=== PATIENT | female | born 1990 | race Caucasian/White ===

== ENCOUNTER 2017-08-22 11:06 | Outpatient (CLI) | payer MEDICAID ==
[2017-08-23 13:02] LABS: HEPATITIS C ANTIBODY NON-REACTIVE (NON-REACTIVE)
[2017-08-23 13:17] LABS: HIV AG/AB 4TH GEN NON-REACTIVE (NON-REACTIVE)
[2017-08-24 11:40] LABS: HSV 1 IGG TYPE SPECIFIC AB <0.90 index; HSV 2 IGG TYPE SPECIFIC AB <0.90 index
== END 2017-08-22 11:07 | disposition home or self-care (01) ==
LOC: LAB.S 11:06
PROVIDERS: ATTEND Nurse Practitioner Family
DX: Z72.51 High risk heterosexual behavior (principal)
CPT/HCPCS: 36415; 81599; 86592; 86695; 86696; 86803; 87389; 87491; 87591

== ENCOUNTER 2019-04-28 08:14 | Outpatient (CLI) | payer MEDICAID ==
--- NOTE | 2019-04-28 21:52 | Ultrasound Report ---
Reason: FAM HX OF POLYCYSTIC KIDNEY DISEASE Procedure Date: 04/28/2019 Accession Number: [id number] / [id number] Procedure: US - Retroperitoneal CPT Code: Final Report FULL RESULT: EXAM: RENAL ULTRASOUND EXAM DATE: 04/28/2019 08:21 AM. CLINICAL HISTORY: FAM HX OF POLYCYSTIC KIDNEY DISEASE. COMPARISON: None. TECHNIQUE: Real-time scanning was performed with static images obtained. FINDINGS: Right Kidney: 11.6 x 3.7 x 5.6 cm. No shadowing stones, contour-deforming masses, or hydronephrosis. Left Kidney: 12.2 x 4.2 x 5.4 cm. No shadowing stones, contour-deforming masses, or hydronephrosis. 1 cm simple interpolar cyst. Bladder: Bilateral jets seen. The prevoid bladder volume was 120 cc. The postvoid bladder volume was 42 cc. Small amount of internal debris, nonspecific. IMPRESSION: 1 cm left interpolar renal cyst. Small amount of bladder debris, nonspecific. Correlate to exclude hematuria or proteinuria. RADIA
== END 2019-04-28 08:15 | disposition home or self-care (01) ==
LOC: DI 08:14
PROVIDERS: ATTEND Urology
DX: Q61.01 Congenital single renal cyst (principal)
CPT/HCPCS: 76770

== ENCOUNTER 2019-12-13 15:34 | Outpatient (CLI) | payer MEDICAID ==
--- NOTE | 2019-12-13 17:16 | XRAY Report ---
PROCEDURE: Lumbar Spine 2 View INDICATIONS: LUMBAR BACK PAIN,SCIATICA TECHNIQUE: 3 views of the lumbar spine were acquired. COMPARISON: None. FINDINGS: Bones: 5 [id number] vertebrae are present. There is normal bony alignment. No vertebral body compression fractures. No suspicious bony lesions. Moderate L4-L5 degenerative disease. Mild L1-L2, L2-L3, L3-L4 and L5-S1 degenerative disc disease. Soft tissues: Overlying bowel gas pattern is normal. No suspicious soft tissue calcifications. Intr auterine device positioned over the central right pelvis. IMPRESSION: 1. Multilevel degenerative disease. 2. No fracture. No acute osseous lesion. If there is continued clinical concern for pathology, then M RI should be considered for further evaluation. Reviewed by: Sana Cohen MD, PhD on 12/13/2019 5:15 PM PDT Approved by: Sana Cohen MD, PhD on 12/13/2019 5:15 PM PDT Station ID: [id number]
== END 2019-12-13 15:35 | disposition home or self-care (01) ==
LOC: DI.S 15:34
PROVIDERS: ATTEND Physician Assistant
DX: M51.36 Other intervertebral disc degeneration, lumbar region (principal)
CPT/HCPCS: 72100

== ENCOUNTER 2020-01-11 12:35 | Outpatient (CLI) | payer MEDICAID ==
--- NOTE | 2020-01-11 15:16 | MRI Report ---
PROCEDURE: Lumbar Spine W/O INDICATIONS: CHRONIC LUMBAR BACK PAIN TECHNIQUE: Noncontrast sagittal T1 spin echo and T2 fast echo, sagittal STIR, axial T1 and T2 fast spin echo thr ough the lumbar spine. In cases with scoliosis, additional coronal T2 fast spin echo may be performe d. COMPARISON: Correlation is made with lumbar plain films, 12/13/2019 FINDINGS: Image quality: Diagnostic, with note made of motion artifact. Alignment and Curvature: There is straightening of the normal lumbar lordosis. No significant AP al ignment abnormality can be seen. Bone Marrow: Marrow is of normal overall signal. No acute vertebral body compression fractures. Spinal Cord: Conus medullaris terminates at the L1 level. Visualized cord demonstrates normal signa l and size. Paraspinous Soft Tissues: No paravertebral masses. T12-L1: Normal in appearance. L1-L2: Normal in appearance. L2-L3: Moderate loss of disc height and signal are seen. Moderate disc bulge is seen, with a centr al disc extrusion, with inferior migration of the disc material. There is an associated annular fissu re seen. Mild to moderate facet hypertrophy is seen. Reactive marrow endplate changes are seen, whic h are hyperintense on T1-weighted and T2-weighted imaging, without significant increased STIR signal. These imaging findings are most consistent with fatty metaplasia (Modic type 2 change). There is m oderate right-sided and mild to moderate left-sided neuroforaminal narrowing seen. Moderate to severe central canal narrowing is seen, as on series 801 image 26. L3-L4: Mild loss of disc height and disc signal are seen. 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 Mild to moderate disc bulge is seen, which is eccentric to the left. There is a mild central disc protrusion. Moderate facet hypertrophy is seen. There is mild to moderate right-sided and mode rate left-sided neuroforaminal narrowing seen. Mild to moderate central canal narrowing is seen. L4-L5: Moderate loss of disc height and signal are seen. Reactive marrow endplate changes are seen , which demonstrate mixed signal and are attributed to a combination of edema and fatty metaplasia (M odic type I and Modic type II changes). Moderate disc bulge is seen, with a prominent central disc e xtrusion. Associated severe central canal narrowing is seen, as on series 801 image 12. Moderate fac et hypertrophy is seen. Moderate bilateral neuroforaminal narrowing is seen, left worse than right. L5-S1: Moderate loss of disc height and signal are seen. Moderate disc bulge is seen, which is ec centric to the left. There is a central disc protrusion. Mild to moderate facet hypertrophy is seen a t this level. There is mild right-sided and moderate left-sided neuroforaminal narrowing seen. Moder ate central canal narrowing is seen. 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 At L4-L5, there is severe central canal narrowing seen. Reviewed by: Bautista Hanson MD on 01/11/2020 2:15 PM [place] Approved by: Bautista Hanson MD on 01/11/2020 2:15 PM [facility] Station ID: [id number]
== END 2020-01-11 12:36 | disposition home or self-care (01) ==
LOC: DI 12:35
PROVIDERS: ATTEND Physician Assistant
DX: M51.36 Other intervertebral disc degeneration, lumbar region (principal); M51.26 Other intervertebral disc displacement, lumbar region; M47.816 Spondylosis without myelopathy or radiculopathy, lumbar region; M48.061 Spinal stenosis, lumbar region without neurogenic claudication; M48.07 Spinal stenosis, lumbosacral region; M47.817 Spondylosis without myelopathy or radiculopathy, lumbosacral region; M51.37 Other intervertebral disc degeneration, lumbosacral region
CPT/HCPCS: 72148

== ENCOUNTER 2020-04-14 07:00 | Outpatient (CLI) | payer MEDICAID | END 2020-04-14 23:59 | disposition home or self-care (01) | LOC: COV 07:00 | PROVIDERS: ATTEND Family Medicine | DX: R05 Cough (principal); R07.0 Pain in throat; Z20.822 Contact with and (suspected) exposure to COVID-19 ==